=== PATIENT | male | born 1990 | race Caucasian/White ===

== ENCOUNTER 2024-07-28 09:30 | Emergency (ER) | payer MEDICAID ==
[~2024-07-28] VITALS: Ht 175.3 cm; Wt 95.0 kg
[2024-07-28 09:45] VITALS: O2SAT 98
[2024-07-28] MEDS ORDERED: ACET-2708 MT (10:50)
[2024-07-28] MEDS ORDERED: IBUP-2028 MT (10:50)
[2024-07-28] MEDS: IBUPROFEN 400MG TABLET PO ONE (11:00)
[2024-07-28 11:03] VITALS: BP 148/87; PULSE 82; RESP 18; TEMP 36.94740; O2SAT 98
== END 2024-07-28 11:11 | disposition home or self-care (01) ==
LOC: ER 09:30
DX: S93.409A Sprain of unspecified ligament of unspecified ankle, initial encounter (principal); W18.30XA Fall on same level, unspecified, initial encounter; Y93.01 Activity, walking, marching and hiking; Y92.89 Other specified places as the place of occurrence of the external cause; Y99.8 Other external cause status
CPT/HCPCS: 73610; 99283